=== PATIENT | male | born 1970 | race Caucasian/White ===

== ENCOUNTER 2020-03-01 16:15 | Emergency (ER) | payer BC ==
[~2020-03-01] VITALS: Ht 175.3 cm; Wt 102.3 kg
[2020-03-01 16:25] VITALS: BP 143/86
[2020-03-01 16:52] LABS: CLARITY,URINE CLEAR; COLOR,URINE YELLOW
[2020-03-01 16:53] LABS: BILIRUBIN,URINE NEG (NEG); GLUCOSE,URINE NEG (NEG); NITRITE,URINE NEG (NEG); UROBILINOGEN,URINE 0.2 mg/dL (0.2 mg/dL)
[2020-03-01 17:03] LABS: BACTERIA,URINE 0 /HPF (0-FEW); SQUAMOUS EPITHELIAL CELL,UR OCC /LPF; WBC,URINE OCC /HPF (0-4)
--- NOTE | 2020-03-01 17:46 | RAD ---
CT Abdomen and Pelvis without contrast History: Right flank pain, hematuria, history of stones Technique: Noncontrast CT imaging was performed of the abdomen and pelvis. Multiplanar images are reviewed. Exposure: One or more of the following individualized dose reduction techniques were utilized for this examination: 1. Automated exposure control 2. Adjustment of the mA and/or kV according to patient size 3. Use of iterative reconstruction technique. Comparison: February 20, 2013 Findings: There is mild right hydroureteronephrosis. There is 4 to 5 mm calculus in the distal right ureter in the pelvis just proximal to the ureterovesical junction. There is no left renal calculus or hydronephrosis. There is a 4 mm inferior left renal calculus. Accurate evaluation of abdominal visceral organs is limited without intravenous contrast. There is no obvious abnormality of the spleen, liver, or pancreas. Gallbladder is present without obvious intraluminal abnormality by CT. There is no adrenal nodularity. Accurate evaluation of bowel is limited without oral contrast. There is no significant free air, free fluid, bowel dilatation. Impression: 1. There is mild right hydroureteronephrosis due to 4 to 5 mm calculus at the distal right ureter. There are small nonobstructive left renal calculus. Electronically signed by: Miquel Trinidad MD (03/01/2020 5:43 PM) [facility]
--- NOTE | 2020-03-01 17:49 | PHYS DOC ---
General Adult EDM: Chief Complaint: FLANK PAIN HPI: HPI: 49-year-old male presents with right flank pain. The patient had pain starting on Wednesday. He decided to stay home on . He drank a lot of fluids and his symptoms seem to improve. He thought he might of passed a kidney stone so he went to work today. The pain has been increasing throughout the day. It comes in waves. It is still in the right flank. He has noticed his urine may have blood in it again like it or Wednesday. He decided to come in for evaluation. He has been taking Tylenol but it is not controlling the pain. He denies fever chills. Review of Systems: Review of Systems: Constitutional: Denies fever or chills Eyes: Denies change in visual acuity HENT: Denies nasal congestion or sore throat Respiratory: Denies cough or shortness of breath Cardiovascular: Denies chest pain or edema GI: Denies abdominal pain, nausea, vomiting, bloody stools or diarrhea : Increased urinary frequency, hematuria Musculoskeletal: Denies back pain or joint pain Integument: Denies rash Neurologic: Denies headache, focal weakness or sensory changes Endocrine: Denies polyuria or polydipsia Lymphatic: Denies swollen glands Psychiatric: Denies depression or anxiety Heart Score: Risk Factors: Risk Factors: DM, Current or recent (<one month) smoker, HTN, HLP, family hi story of CAD, obesity. Risk Scores: Score 0 - 3: 2.5% MACE over next 6 weeks - Discharge Home Score 4 - 6: 20.3% MACE over next 6 weeks - Admit for Clinical Observation Score 7 - 10: 72.7% MACE over next 6 weeks - Early Invasive Strategies Allergies: Allergies: Allergies Coded Allergies Type Severity Reaction Last Updated Verified No Known Drug Allergies 03/01/20 No Physical Exam: PE: Constitutional: Well developed, obese, well nourished, no acute distress, non- toxic appearance. [] HENT: Normocephalic, atraumatic, bilateral external ears normal, oropharynx moist, no oral exudates, nose normal. [] Eyes: PERRLA, EOMI, conjunctiva normal, no discharge. [] Neck: Normal range of motion, no tenderness, supple, no stridor. [] Cardiovascular:Heart rate regular rhythm, no murmur [] Lungs & Thorax: Bilateral breath sounds clear to auscultation [] Abdomen: Bowel sounds normal, soft, no tenderness, no masses, no pulsatile masses. [] Skin: Warm, dry, no erythema, no rash. [] Back: No tenderness, mild right-sided CVA tenderness. [] Extremities: No tenderness, no cyanosis, no clubbing, ROM intact, no edema. [] Neurologic: Alert and oriented X 3, normal motor function, normal sensory function, no focal deficits noted. [] Psychologic: Affect normal, judgement normal, mood normal. [] Current Patient Data: Labs: Laboratory Tests Test 03/01/20 16:36 Urine Collection Type Unknown Urine Color Yellow Urine Clarity Clear Urine pH 5.0 Urine Specific [place] 1.010 Urine Protein Neg (NEG-TRACE) Urine Glucose (UA) Neg mg/dL (NEG) Urine Ketones (Stick) Neg mg/dL (NEG) Urine Blood Large (NEG) Urine Nitrite Neg (NEG) Urine Bilirubin Neg (NEG) Urine Urobilinogen Dipstick 0.2 mg/dL (0.2 mg/dL) Urine Leukocyte Esterase Neg (NEG) Urine RBC 11-20 /HPF (0-2) Urine WBC Occ /HPF (0-4) Urine Squamous Epithelial Cells Occ /LPF Urine Bacteria 0 /HPF (0-FEW) EKG: EKG: [] Radiology/Procedures: Radiology/Procedures: [] Course & Med Decision Making: Course & Med Decision Making Pertinent Labs and Imaging studies reviewed. (See chart for details) The patient's urinalysis was negative for infection. There was blood. The CT scan did show a stone on the right with mild hydroureteronephrosis. This stone is 4 to 5 mm. It may pass. I will discharge him with [place] and Flomax. If it does not pass in a few days, the patient will follow-up with urology. He is stable for discharge at this time. [] Dragon Disclaimer: Dragon Disclaimer: This electronic medical record was generated, in whole or in part, using a voice recognition dictation system. Departure Departure: Impression: Primary Impression: Kidney stone on right side Disposition: HOME, SELF-CARE Condition: STABLE Referrals: BRITNI DOWNING MD (PCP) Patient Instructions: Kidney Stones, Rkjt-zh-Pqno Scripts Tamsulosin Hcl (FLOMAX) 0.4 Mg Cap.er.24h 0.4 MG PO DAILY for kidney stone, #14 CAP.SR Prov: DEMI MEKE DO 03/01/20 Hydrocodone Bit/Acetaminophen (NORCO 5-325 TABLET) 1 Each Tablet 1 TAB PO PRN Q6HRS PRN for PAIN, #20 TAB 0 Refills Prov: DEMI MEEK DO 03/01/20 DEMI MEEK DO Mar 01, 2020 17:49
[2020-03-01] MEDS ORDERED: TAMS0.4C97 PO (17:59)
[2020-03-01] MEDS ORDERED: HYDR-3165 PO (17:59)
== END 2020-03-01 18:49 | disposition home or self-care (01) ==
LOC: ER 16:15
DX: N13.2 Hydronephrosis with renal and ureteral calculous obstruction (principal)
CPT/HCPCS: 74176; 81001; 99284-25

== ENCOUNTER 2021-03-21 18:26 | Emergency (ER) | payer BC ==
[~2021-03-21] VITALS: Ht 175.3 cm; Wt 97.6 kg
[~2021-03-21 18:26] MED LIST: HYDR-3165 PO; TAMS0.4C97 PO
--- NOTE | 2021-03-21 18:51 | RAD ---
EXAM: Chest, single view. HISTORY: Palpitations. COMPARISON: None. FINDINGS: A frontal view of the chest is obtained. There is no infiltrate, pleural effusion or pneumo thorax. The heart is normal in size. IMPRESSION: No acute pulmonary finding. Electronically signed by: Melonie Miller MD (03/21/2021 6:49 PM) [facility]
[2021-03-21 19:08] LABS: HEMATOCRIT 46.7 % (39.0-53.0); HEMOGLOBIN 15.9 g/dL (13.0-17.5); RED BLOOD COUNT 5.64 x10^6/uL (4.30-5.70); RED CELL DISTRIBUTION WIDTH 13.6 % (11.5-14.5); WHITE BLOOD COUNT 10.2 x10^3/uL (4.0-11.0)
[2021-03-21 19:28] LABS: CALCIUM 9.4 mg/dL (8.5-10.1); GFR 78.5; POTASSIUM 3.9 mmol/L (3.5-5.1)
[2021-03-21 19:34] LABS: ALBUMIN 4.1 g/dL (3.4-5.0); TOTAL BILIRUBIN 0.6 mg/dL (0.2-1.0); TOTAL PROTEIN 8.1 g/dL (6.4-8.2)
--- NOTE | 2021-03-21 19:41 | EKG ---
[address] [address] Test Date: 2021-03-21 Test Time: 18:48:57 Pat Name: ARNALDO ABREU Department: Room: Gender: M Software Engineer Mobile: : 1970 Requested By: NESSA FELDMAN Order Number: [id number] Reading MD: Villa Milian MD Measurements Intervals [place] Rate: 79 P: 5 UT: 156 QRS: -15 QRSD: 84 T: 43 QT: 350 QTc: 402 Interpretive Statements SINUS RHYTHM Electronically Signed On 03-26-2021 8:50:40 CDT by Villa Milian MD
--- NOTE | 2021-03-21 19:52 | PHYS DOC ---
Past History Past Medical History: Hypertension Past Surgical History: No Surgical History Alcohol Use: Occasionally Adult General Chief Complaint Chief Complaint: RAPID HEART RATE HPI HPI Patient is a 50-year-old male who presents to the emergency department for chief complaint of hard heart beat. States that over the last week to 10 days, at the end of the day when he lays down to go to bed he feels his heart beating. States that he is not sure if it is beating fast but he can just feel it beating in his chest. States he does work outside, in the heat and does not drink a whole lot of water but drinks a lot of juice. States he is never had anything like this happen before and denies any cardiovascular history. Denies any h eadaches, changes in vision, lightheadedness or dizziness, chest pain, shortness of breath, abdominal pain, nausea, vomiting, dysuria, hematuria or blood in the stool. Denies any dyspnea on exertion, orthopnea, PND or edema. Denies any exercise intolerance. Denies any alcohol, tobacco or drug use. States he is otherwise eating and drinking normally. States he is making urine and stool normally for him. Review of Systems Review of Systems Review of systems otherwise unremarkable except noted in HPI Allergies Allergies Allergies Coded Allergies Type Severity Reaction Last Updated Verified No Known Drug Allergies 03/01/20 No Physical Exam Physical Exam Constitutional: Well developed, well nourished, no acute distress, non-toxic appearance. [] HENT: Normocephalic, atraumatic, bilateral external ears normal, oropharynx moist, no oral exudates, nose normal. [] Eyes: conjunctiva normal, no discharge. [] Neck: Normal range of motion, no tenderness, supple, no stridor. [] Cardiovascular:Heart rate regular rhythm, no murmur [] Lungs & Thorax: Bilateral breath sounds clear to auscultation [] Abdomen: soft, no tenderness, no masses, no pulsatile masses. [] Skin: Warm, dry, no erythema, no rash. [] Back: no CVA tenderness. [] Extremities: No tenderness, no cyanosis, no clubbing, ROM intact, no edema. [] Neurologic: Alert and oriented X 3, no focal deficits noted. [] Psychologic: Affect normal, judgement normal, mood normal. [] Current Patient Data Vital Signs Vital Signs Date Time Temp Pulse Resp B/P (MAP) Pulse Ox O2 Delivery O2 Flow Rate FiO2 03/21/21 18:45 98.3 76 16 152/60 (90) 98 Room Air Lab Results Laboratory Tests Test 03/21/21 18:50 White Blood Count 10.2 x10^3/uL (4.0-11.0) Red Blood Count 5.64 x10^6/uL (4.30-5.70) Hemoglobin 15.9 g/dL (13.0-17.5) Hematocrit 46.7 % (39.0-53.0) Mean Corpuscular Volume 83 fL (79-100) Mean Corpuscular Hemoglobin 28 pg (25-35) Mean Corpuscular Hemoglobin Concent 34 g/dL (31-37) Red Cell Distribution Width 13.6 % (11.5-14.5) Platelet Count 271 x10^3/uL (140-400) D-Dimer (Florinda) 0.27 mg/L (0.00-0.50) Sodium Level 144 mmol/L (136-145) Potassium Level 3.9 mmol/L (3.5-5.1) Chloride Level 106 mmol/L (98-107) Carbon Dioxide Level 26 mmol/L (21-32) Anion Gap 12 (6-14) Blood Urea Nitrogen 18 mg/dL (8-26) Creatinine 1.0 mg/dL (0.7-1.3) Estimated GFR (Cockcroft-Gault) 78.5 BUN/Creatinine Ratio 18 (6-20) Glucose Level 106 mg/dL (70-99) H Calcium Level 9.4 mg/dL (8.5-10.1) Magnesium Level 2.0 mg/dL (1.8-2.4) Total Bilirubin 0.6 mg/dL (0.2-1.0) Aspartate Amino Transferase (AST) 30 U/L (15-37) Alanine Aminotransferase (ALT) 63 U/L (16-63) Alkaline Phosphatase 104 U/L (46-116) Troponin I Quantitative < 0.017 ng/mL (0-0.055) Total Protein 8.1 g/dL (6.4-8.2) Albumin 4.1 g/dL (3.4-5.0) Albumin/Globulin Ratio 1.0 (1.0-1.7) EKG EKG [] Radiology/Procedures Radiology/Procedures [] Heart Score C/O Chest Pain: No Risk Factors: Risk Factors: DM, Current or recent (<one month) smoker, HTN, HLP, family history of CAD, obesity. Risk Scores: Risk Factors: DM, Current or recent (<one month) smoker, HTN, HLP, family history of CAD, obesity. Course & Med Decision Making Course & Med Decision Making Patient is a 50-year-old male who presents to the emergency department with 7 to 10 days of nighttime concern for feeling his heartbeat Vital signs not concerning. Physical exam noted above. EKG noted above and normal. Troponin normal. Low risk Wells. Dimer negative. Chest x-ray not concerning. Laboratory analysis otherwise unremarkable. Patient asymptomatic in the ED. Discussed all findings with patient and discussed differential diagnosis for feeling his heart beat at nighttime only. Reassured that at least at this time he did not appear to have anything emergent going on but advised that that did not mean that there could be something going on. Advised to call primary care physician as soon as he can to update on ED visit and set up a follow-up as soon as possible. Gave strict return precautions to the ED. Family grateful, verbalized understanding and agreed with plan of discharge. [] Dragon Disclaimer Dragon Disclaimer This electronic medical record was generated, in whole or in part, using a voice recognition dictation system. Departure Departure: Disposition: HOME / SELF CARE / HOMELESS Condition: GOOD Referrals: BRITNI DOWNING MD (PCP) Patient Instructions: Dehydration, Adult, Heartbeats (How the Heart Works) Additional Instructions: Please read all of the attached information carefully. As discussed your work- up today was reassuring, but as we discussed that does not necessarily mean there is not something going on. Please call your primary care physician as soon as you can to discuss your ED visit and set up a follow-up as soon as possible. Please come back to the emergency department immediately with new or concerning symptoms as discussed. NESSA FELDMAN MD March 21, 2021 19:52
[2021-03-21 20:00] VITALS: BP 148/70
== END 2021-03-21 19:58 | disposition home or self-care (01) ==
LOC: ER 18:26
DX: E86.0 Dehydration (principal); I10 Essential (primary) hypertension
CPT/HCPCS: 36415; 71045; 80053; 83735; 84484; 85027; 85379; 93005; 99285-25

== ENCOUNTER → 2021-04-29 | Outpatient (CLI) | payer BC ==
--- NOTE | 2021-04-29 13:50 | CARD ---
MR#: [id number] Date of Study: 04/29/2021 Ordering Physician: CASPER VALDEZ, Referring Physician: CASPER VALDEZ, Tech: Erica Basurto, [facility] APPROVED REPORT EXAM: Two-dimensional and M-mode echocardiogram with Doppler and color Doppler. Other Information HR: 63bpm INDICATION Chest Pain RISK FACTORS Hypertension 2D DIMENSIONS Left Atrium(2D)2.4 (1.6-4.0cm)IVSd0.7 (0.7-1.1cm) Aortic Root(2D)3.4 (2.0-3.7cm)LVDd4.8 (3.9-5.9cm) LVOT Diameter2.1 (1.8-2.4cm)PWd0.8 (0.7-1.1cm) LVDs3.2 (2.5-4.0cm)FS (%) 33.5 % SV67.0 mlLVEF(%)62.1 (>50%) Aortic Valve AoV Peak Benjie.124.1cm/sAoV VTI22.9cm AO Peak GR.6.2mmHgLVOT Peak Benjie.85.9cm/s LVOT VTI 17.15cmAO Mean GR.3mmHg YEHUDA (VMAX)2.52ng2TUI (VTI)2.59cm2 Mitral Valve MV E Rtvwfmgk03.1cm/sMV DECEL [id number] MV A Amanvddj30.9cm/sE/A Ratio1.2 Pulmonary Valve PV Peak Gfsftoxy18.6cm/sPV Peak Grad.3mmHg Tricuspid Valve TR P. Awepkrbs728dq/sRAP VBNKYZTE8fkBx TR Peak Gr.97ccDiTHHE36jpVx Pulmonary Vein S1 Ictzsrhr23.1cm/sD2 Wztpgoyl55.1cm/s LEFT VENTRICLE The left ventricle is normal size. There is normal left ventricular wall thickness. The left ventricu lar systolic function is normal and the ejection fraction is within normal range. The Ejection Fracti on is 50-55%. There is normal LV segmental wall motion. The left ventricular diastolic function and f illing is normal for age. RIGHT VENTRICLE The right ventricle is normal size. There is normal right ventricular wall thickness. The right ventr icular systolic function is normal. ATRIA The left atrium size is normal. The right atrium is borderline dilated. The interatrial septum is int act with no evidence for an atrial septal defect or patent foramen ovale as noted on 2-D or Doppler i maging. AORTIC VALVE The aortic valve is normal in structure and function. Doppler and Color Flow revealed trace aortic re gurgitation. There is no significant aortic valvular stenosis. Calculated aortic valve area is 2.7 cm 2 with maximum pressure gradient of 6 mmHg and mean pressure gradient of 3 mmHg. MITRAL VALVE The mitral valve is normal in structure and function. There is no evidence of mitral valve prolapse. There is no mitral valve stenosis. Doppler and Color-flow revealed trace mitral regurgitation. TRICUSPID VALVE The tricuspid valve is normal in structure and function. Doppler and Color Flow revealed trace tricus pid regurgitation with an estimated PAP of 31 mmHg. There is no tricuspid valve stenosis. PULMONIC VALVE The pulmonic valve is not well visualized. Doppler and Color Flow revealed trace pulmonic valvular re gurgitation. There is no pulmonic valvular stenosis. GREAT VESSELS The aortic root is normal in size. The ascending aorta is normal in size. The IVC was not visualized. PERICARDIAL EFFUSION There is no evidence of significant pericardial effusion. Critical Notification Critical Value: No <Conclusion> The left ventricular systolic function is normal and the ejection fraction is within normal range. Th e Ejection Fraction is 50-55%. There is normal LV segmental wall motion. Signed by : Villa Milian, Electronically Approved : 04/29/2021 13:49:52
--- NOTE | 2021-04-29 13:53 | RAD ---
MR#: [id number] Date of Study: 04/29/2021 Ordering Physician: GENARO SIMONS, Referring Physician: GREGG THAPA Tech: RT Mariah Armenta) (N) APPROVED REPORT Test Type: Exercise Stress Nurse/Tech: RT Kathi (Joann) (N) Test Indications: dyspnea, "heart pounding" Cardiac History: none Medications: see EHR Medical History: hypertension, ex smoker Resting ECG: sinus rythm Resting Heart Rate: 57 bpm Resting Blood Pressure: 141/84mmHg Pretest Chest Pain: None Nurse/Tech Notes Consent: The procedure was explained to the patient in lay terms. Informed consent was witnessed. Guicho eout was entered into [employer]. History and Stress Test performed by RT Mariah Armenta) (N) POST EXERCISE Reason for Termination: Fatigue Target HR: Yes Max HR: 149 bpm 89% of Maximum Predicted HR: 167 bpm Exercise duration: 7:30 min:sec, 3 Stage Exercise capacity: 10METs Max Blood Pressure: 187/81mmHg INTERPRETATION Stress EKG Conclusion: No acute EKG changes with stress testing. Imaging Protocol IMAGE PROTOCOL: Rest Tc-99m/stress Tc-99m 1 day Rest: Stress: Viability: Radiopharm.Tc99m TyjfczxfhKm36m Sestamibi Dose10.6mCi 32.7mCi Duration 15min. 10min. Img Date 04/29/2021 04/29/2021 Inj-Img Usjt62kqs. 60min. Post-Injection Exercise: 1 minute Rest Admin Site:IV - Left AntecubitalAdministrator: RT Kathi (Joann)(N) Stress Admin Site: IV - Left AntecubitalAdministrator: RT Mariah Armenta)(N) STRESS DATA End Diast. Vol.112.0mlAv. Heart Rate71.0bpm End Syst. Vol.28.0mlCO Index BSA0.0L/min Myocardial Brxr537.0gEject. Dcqaxore79.0% Stress Rates Pk. Fill Rate2.49EDV/secLVtime Pk. Fill 181.10msec Pk. Empty Rate3.76ESV/secLVtime Pk. Rameg330.98msec 1/3 Pk. Fill1.48EDV/sec Stress Scores Regional WT0.00Summed WT0.00 Regional WM0.00Summed WM0.00 The rest and stress images show normal perfusion, normal contraction and thickening. LV Perf. Quant 17 Seg. SSS2.00 17 Seg. SRS3.00 17 Seg. SDS0.00 Stress Defect Extent (% LAD)0.00Rest Defect Extent (% LAD)0.00Rev. Defect Extent (% LAD)0.00 Stress Defect Extent (% LCX) 16.30Rest Defect Extent (% LCX)16.30Rev. Defect Extent (% LCX)0.00 Stress Defect Extent (% RCA)0.00Rest Defect Extent (% RCA)0.00Rev. Defect Extent (% RCA)0.00 Stress Defect Extent (% CESAR)3.00Rest Defect Extent (% CESAR)4.10Rev. Defect Extent (% CESAR)0.00 Other Information Quality:Good Risk Assessment: Low Risk Conclusion 1. No evidence of EKG changes with stress testing. 2. Average exercise capacity with 7.0 Mets achieved. 3. Normal perfusion at stress/rest. 4. Low risk study. 5. EF > 60%. Signed by : Genaro Simons, Electronically Approved : 04/29/2021 13:53:17
== END ==
LOC: NM 08:10
PROVIDERS: ATTEND Internal Medicine Cardiovascular Disease
DX: I11.9 Hypertensive heart disease without heart failure (principal); Z87.891 Personal history of nicotine dependence
CPT/HCPCS: 78452; 93017; 93306; A9500; 96376